=== PATIENT | female | born 1975 | race Caucasian/White ===

== ENCOUNTER → 2019-05-04 14:34 | Outpatient (BNVA) | payer OTHER, SELFPAY | PROVIDERS: PCP Nurse Practitioner; Visit Provider Psychiatry & Neurology Psychiatry | DX: F40.10 Social phobia, unspecified (principal) | CPT/HCPCS: 80061; 83036 ==

== ENCOUNTER 2019-05-26 14:00 | Outpatient (CLI) | payer MEDICAID, SELFPAY ==
[2019-05-16 12:35] VITALS: BP 111/77
--- NOTE | 2019-05-26 14:30 | MM_ITS ---
WS: [id number] SCREENING DIGITAL MAMMOGRAM WITH CAD HISTORY: Screening. COMPARISON: None available. Bilateral CC and MLO views submitted. Computer aided detection analyzed. Breast composition: There are scattered areas of fibroglandular density. Dense slightly lobulated nod ule in the LEFT axillary tail measures 6.8 mm. Central lucent notch. Favor this is probably a lymph n ode. As it is very dense margins are slightly lobulated and not imaged prior additional imaging is re commended. LEFT breast: Spot compression views (CC and MLO). True ML. Ultrasound to follow if abnormality persis ts. Favor benign lymph node but due to some concerning features recommend additional imaging. MM/[id number] IMPRESSION: BI-RADS: 0-Incomplete: Need additional imaging evaluation FOLLOW UP: Need Additional Imaging
== END 2019-05-26 14:01 | disposition home or self-care (01) ==
LOC: RADSHAW 14:03
PROVIDERS: PCP Nurse Practitioner; Visit Provider Internal Medicine
DX: N95.1 Menopausal and female climacteric states (principal); Z12.31 Encounter for screening mammogram for malignant neoplasm of breast
CPT/HCPCS: 77067

== ENCOUNTER 2019-06-13 09:32 | Outpatient (CLI) | payer MEDICAID, SELFPAY ==
[2019-05-16 12:35] VITALS: BP 111/77
--- NOTE | 2019-06-13 09:38 | US_ITS ---
WS: [id number] LEFT DIGITAL MAMMOGRAPHY WITH CAD CLINICAL INFORMATION: ABNORMAL MAMMOGRAM COMPARISON: May 26, 2019 TECHNIQUE: 3 views of the left breast were obtained. FINDINGS: Scattered fibroglandular densities of the left breast. Again seen is the 7 mm oval density upper oute r left breast with suggestion of a fatty hilum which most likely represents incidental lymph node. No comparisons available. Ultrasound is pending for further evaluation. ULTRASOUND BREAST LEFT TECHNIQUE: Ultrasound left breast focused area of concern. CLINICAL INFORMATION: ABNORMAL MAMMOGRAM COMPARISON: None. FINDINGS: Ultrasound left breast o'clock position axillary tail. (Image at the 10-1 o'clock positions. Incident al benign-appearing lymph node is noted measuring 7.8 mm with echogenic fatty hilum. Of note, this is only well visualized with patient positioned in the upright position with left arm raised for future reference. US/US breast LT limited* [id number] IMPRESSION: BI-RADS: 2-Benign FOLLOW UP: 1 Year Follow-up Recommend return to annual screening mammography.
== END 2019-06-13 09:33 | disposition home or self-care (01) ==
LOC: RADSHAW 09:33
PROVIDERS: PCP Internal Medicine; Visit Provider Internal Medicine
DX: R92.8 Other abnormal and inconclusive findings on diagnostic imaging of breast (principal); N63.21 Unspecified lump in the left breast, upper outer quadrant
CPT/HCPCS: 76642; 77065

== ENCOUNTER → 2019-07-20 07:51 | Outpatient (BNVA) | payer MEDICAID, SELFPAY | PROVIDERS: PCP Internal Medicine; Visit Provider Psychiatry & Neurology Psychiatry | DX: F43.10 Post-traumatic stress disorder, unspecified (principal); F39 Unspecified mood [affective] disorder; G47.00 Insomnia, unspecified; F09 Unspecified mental disorder due to known physiological condition; F07.89 Other personality and behavioral disorders due to known physiological condition; F40.01 Agoraphobia with panic disorder; E55.9 Vitamin D deficiency, unspecified; N95.1 Menopausal and female climacteric states; F33.1 Major depressive disorder, recurrent, moderate | CPT/HCPCS: 99205 ==

== ENCOUNTER → 2019-08-14 08:21 | Outpatient (BNVA) | payer MEDICAID, SELFPAY ==
[2019-05-16 12:35] VITALS: BP 111/77
== END ==
PROVIDERS: PCP Internal Medicine; Visit Provider Social Worker
DX: F43.12 Post-traumatic stress disorder, chronic (principal); F25.1 Schizoaffective disorder, depressive type; F41.0 Panic disorder [episodic paroxysmal anxiety]
CPT/HCPCS: 90834

== ENCOUNTER → 2019-08-28 08:31 | Outpatient (BNVA) | payer MEDICAID, SELFPAY ==
[2019-05-16 12:35] VITALS: BP 111/77
== END ==
PROVIDERS: PCP Internal Medicine; Visit Provider Social Worker
DX: F43.12 Post-traumatic stress disorder, chronic (principal); F25.1 Schizoaffective disorder, depressive type; F41.0 Panic disorder [episodic paroxysmal anxiety]
CPT/HCPCS: 90834

== ENCOUNTER → 2019-08-29 15:00 | Outpatient (BNVA) | payer MEDICAID, SELFPAY ==
[2019-05-16 12:35] VITALS: BP 111/77
== END ==
PROVIDERS: Visit Provider Psychiatry & Neurology Psychiatry
DX: F41.1 Generalized anxiety disorder (principal); F40.01 Agoraphobia with panic disorder; F43.12 Post-traumatic stress disorder, chronic
CPT/HCPCS: 99214

== ENCOUNTER → 2019-10-02 07:47 | Outpatient (BNVA) | payer MEDICAID, SELFPAY ==
[2019-05-16 12:35] VITALS: BP 111/77
== END ==
PROVIDERS: PCP Internal Medicine; Visit Provider Nurse Practitioner Psychiatric/Mental Health
DX: F43.10 Post-traumatic stress disorder, unspecified (principal); F25.1 Schizoaffective disorder, depressive type; F39 Unspecified mood [affective] disorder
CPT/HCPCS: 90834; 99213

== ENCOUNTER → 2019-10-23 08:00 | Outpatient (BNVA) | payer MEDICAID, SELFPAY ==
[2019-05-16 12:35] VITALS: BP 111/77
== END ==
PROVIDERS: Visit Provider Social Worker Clinical
DX: F43.12 Post-traumatic stress disorder, chronic (principal)
CPT/HCPCS: 90834

== ENCOUNTER → 2019-11-06 08:35 | Outpatient (BNVA) | payer MEDICAID, SELFPAY ==
[2019-05-16 12:35] VITALS: BP 111/77
== END ==
PROVIDERS: Visit Provider Social Worker Clinical
DX: F43.12 Post-traumatic stress disorder, chronic (principal); F25.1 Schizoaffective disorder, depressive type
CPT/HCPCS: 90834

== ENCOUNTER → 2019-11-20 08:47 | Outpatient (BNVA) | payer MEDICAID, SELFPAY ==
[2019-05-16 12:35] VITALS: BP 111/77
== END ==
PROVIDERS: Visit Provider Social Worker Clinical
DX: F43.12 Post-traumatic stress disorder, chronic (principal); F25.1 Schizoaffective disorder, depressive type
CPT/HCPCS: 90834

== ENCOUNTER → 2019-12-11 08:23 | Outpatient (BNVA) | payer MEDICAID, SELFPAY ==
[2019-05-16 12:35] VITALS: BP 111/77
== END ==
PROVIDERS: Visit Provider Social Worker Clinical
DX: F43.12 Post-traumatic stress disorder, chronic (principal); F25.1 Schizoaffective disorder, depressive type
CPT/HCPCS: 90834

== ENCOUNTER → 2019-12-12 09:32 | Outpatient (BNVA) | payer MEDICAID, SELFPAY ==
[2019-05-16 12:35] VITALS: BP 111/77
== END ==
PROVIDERS: Visit Provider Nurse Practitioner Psychiatric/Mental Health
DX: F25.1 Schizoaffective disorder, depressive type (principal); F43.12 Post-traumatic stress disorder, chronic; F81.9 Developmental disorder of scholastic skills, unspecified
CPT/HCPCS: 99212

== ENCOUNTER → 2019-12-25 09:14 | Outpatient (BNVA) | payer MEDICAID, SELFPAY ==
[2019-05-16 12:35] VITALS: BP 111/77
== END ==
PROVIDERS: Visit Provider Social Worker Clinical
DX: F43.12 Post-traumatic stress disorder, chronic (principal); F25.1 Schizoaffective disorder, depressive type
CPT/HCPCS: 90834

== ENCOUNTER → 2020-01-08 09:01 | Outpatient (BNVA) | payer MEDICAID, SELFPAY ==
[2019-05-16 12:35] VITALS: BP 111/77
== END ==
PROVIDERS: Visit Provider Social Worker Clinical
DX: F43.12 Post-traumatic stress disorder, chronic (principal); F25.1 Schizoaffective disorder, depressive type
CPT/HCPCS: 90834

== ENCOUNTER → 2020-01-22 08:16 | Outpatient (BNVA) | payer MEDICAID, SELFPAY ==
[2019-05-16 12:35] VITALS: BP 111/77
== END ==
PROVIDERS: Visit Provider Social Worker Clinical
DX: F43.12 Post-traumatic stress disorder, chronic (principal); F25.1 Schizoaffective disorder, depressive type
CPT/HCPCS: 90834

== ENCOUNTER → 2020-02-05 08:36 | Outpatient (BNVA) | payer MEDICAID, SELFPAY ==
[2019-05-16 12:35] VITALS: BP 111/77
== END ==
PROVIDERS: Visit Provider Nurse Practitioner Psychiatric/Mental Health
DX: F25.1 Schizoaffective disorder, depressive type (principal); F43.12 Post-traumatic stress disorder, chronic
CPT/HCPCS: 99212

== ENCOUNTER → 2020-02-12 07:51 | Outpatient (BNVA) | payer MEDICAID, SELFPAY ==
[2019-05-16 12:35] VITALS: BP 111/77
== END ==
PROVIDERS: Visit Provider Social Worker Clinical
DX: F43.12 Post-traumatic stress disorder, chronic (principal); F25.1 Schizoaffective disorder, depressive type
CPT/HCPCS: 90834

== ENCOUNTER → 2020-02-26 08:14 | Outpatient (BNVA) | payer MEDICAID, SELFPAY ==
[2019-05-16 12:35] VITALS: BP 111/77
== END ==
PROVIDERS: Visit Provider Social Worker Clinical
DX: F43.12 Post-traumatic stress disorder, chronic (principal); F25.1 Schizoaffective disorder, depressive type
CPT/HCPCS: 90834

== ENCOUNTER → 2020-03-18 07:45 | Outpatient (BNVA) | payer MEDICAID, SELFPAY ==
[2019-05-16 12:35] VITALS: BP 111/77
== END ==
PROVIDERS: Visit Provider Social Worker Clinical
DX: F43.12 Post-traumatic stress disorder, chronic (principal); F25.1 Schizoaffective disorder, depressive type
CPT/HCPCS: 90834

== ENCOUNTER → 2020-04-22 08:47 | Outpatient (BNVA) | payer MEDICAID, SELFPAY ==
[2019-05-16 12:35] VITALS: BP 111/77
== END ==
PROVIDERS: Visit Provider Counselor Professional
DX: F25.1 Schizoaffective disorder, depressive type (principal); F43.12 Post-traumatic stress disorder, chronic
CPT/HCPCS: 90834

== ENCOUNTER → 2020-04-29 09:29 | Outpatient (BNVA) | payer MEDICAID, SELFPAY ==
[2019-05-16 12:35] VITALS: BP 111/77
== END ==
PROVIDERS: Visit Provider Nurse Practitioner Psychiatric/Mental Health
DX: F25.1 Schizoaffective disorder, depressive type (principal); F43.12 Post-traumatic stress disorder, chronic; Z79.899 Other long term (current) drug therapy
CPT/HCPCS: 99213

== ENCOUNTER → 2020-05-06 08:03 | Outpatient (BNVA) | payer MEDICAID, SELFPAY ==
[2019-05-16 12:35] VITALS: BP 111/77
== END ==
PROVIDERS: Visit Provider Counselor Professional
DX: F43.12 Post-traumatic stress disorder, chronic (principal); F41.0 Panic disorder [episodic paroxysmal anxiety]; F25.1 Schizoaffective disorder, depressive type
CPT/HCPCS: 90834

== ENCOUNTER → 2020-06-03 08:03 | Outpatient (BNVA) | payer MEDICAID, SELFPAY ==
[2019-05-16 12:35] VITALS: BP 111/77
== END ==
PROVIDERS: Visit Provider Counselor Professional
DX: F43.12 Post-traumatic stress disorder, chronic (principal)
CPT/HCPCS: 90832

== ENCOUNTER 2020-06-14 08:19 | Outpatient (CLI) | payer MEDICAID, SELFPAY ==
[2019-05-16 12:35] VITALS: BP 111/77
--- NOTE | 2020-06-14 08:23 | MM_ITS ---
WS: [id number] Bilateral screening digital mammogram, 06/14/2020 Clinical Data: SCREENING Comparison: 06/13/2019, 05/26/2019. Findings: The breast parenchymal pattern shows fat replacement. No spiculated masses or clustered calcification s are seen. There are no secondary signs of carcinoma. MM/[id number] Impression: 1. Negative bilateral mammogram unchanged. 2. Recommend annual screening mammograms. BIRADS: 1-Negative FOLLOW UP: 1 Year Follow-up The CAD loom checker was used.
== END 2020-06-14 08:20 | disposition home or self-care (01) ==
LOC: RADSHAW 08:22
PROVIDERS: PCP Internal Medicine; Visit Provider Internal Medicine
DX: Z12.31 Encounter for screening mammogram for malignant neoplasm of breast (principal)
CPT/HCPCS: 77067

== ENCOUNTER → 2020-06-18 08:26 | Outpatient (BNVA) | payer MEDICAID, SELFPAY ==
[2019-05-16 12:35] VITALS: BP 111/77
== END ==
PROVIDERS: Visit Provider Counselor Professional
DX: F43.12 Post-traumatic stress disorder, chronic (principal); F25.1 Schizoaffective disorder, depressive type; F41.0 Panic disorder [episodic paroxysmal anxiety]
CPT/HCPCS: 90834; 90832

== ENCOUNTER → 2020-07-29 08:06 | Outpatient (BNVA) | payer MEDICAID, SELFPAY ==
[2019-05-16 12:35] VITALS: BP 111/77
== END ==
PROVIDERS: Visit Provider Nurse Practitioner Psychiatric/Mental Health
DX: F43.12 Post-traumatic stress disorder, chronic (principal); F41.0 Panic disorder [episodic paroxysmal anxiety]; F25.1 Schizoaffective disorder, depressive type; Z79.899 Other long term (current) drug therapy
CPT/HCPCS: 99214

== ENCOUNTER → 2020-09-19 07:50 | Outpatient (BNVA) | payer MEDICAID, SELFPAY ==
[2019-05-16 12:35] VITALS: BP 111/77
== END ==
PROVIDERS: Visit Provider Counselor Professional
DX: F43.12 Post-traumatic stress disorder, chronic (principal); F41.0 Panic disorder [episodic paroxysmal anxiety]; F25.1 Schizoaffective disorder, depressive type
CPT/HCPCS: 90791; 80061; 83036

== ENCOUNTER → 2020-09-23 08:18 | Outpatient (BNVA) | payer MEDICAID, SELFPAY ==
[2019-05-16 12:35] VITALS: BP 111/77
== END ==
PROVIDERS: Visit Provider Nurse Practitioner Psychiatric/Mental Health
DX: F43.12 Post-traumatic stress disorder, chronic (principal); F41.0 Panic disorder [episodic paroxysmal anxiety]; F25.1 Schizoaffective disorder, depressive type; Z79.899 Other long term (current) drug therapy
CPT/HCPCS: 99213

== ENCOUNTER → 2020-12-09 07:35 | Outpatient (BNVA) | payer MEDICAID, SELFPAY ==
[2019-05-16 12:35] VITALS: BP 111/77
== END ==
PROVIDERS: Visit Provider Nurse Practitioner Psychiatric/Mental Health
DX: F43.12 Post-traumatic stress disorder, chronic (principal); F41.0 Panic disorder [episodic paroxysmal anxiety]; F25.1 Schizoaffective disorder, depressive type; Z79.899 Other long term (current) drug therapy
CPT/HCPCS: 99213

== ENCOUNTER → 2020-12-23 07:34 | Outpatient (BNVA) | payer MEDICAID, SELFPAY ==
[2019-05-16 12:35] VITALS: BP 111/77
== END ==
PROVIDERS: PCP Internal Medicine; Visit Provider Nurse Practitioner Psychiatric/Mental Health
DX: F43.12 Post-traumatic stress disorder, chronic (principal); F41.1 Generalized anxiety disorder; F25.1 Schizoaffective disorder, depressive type; Z79.899 Other long term (current) drug therapy
CPT/HCPCS: 99213

== ENCOUNTER → 2021-03-13 07:45 | Outpatient (BNVA) | payer MEDICAID, SELFPAY ==
[2019-05-16 12:35] VITALS: BP 111/77
== END ==
PROVIDERS: PCP Internal Medicine; Visit Provider Nurse Practitioner Psychiatric/Mental Health
DX: F43.12 Post-traumatic stress disorder, chronic (principal); F41.0 Panic disorder [episodic paroxysmal anxiety]; F25.1 Schizoaffective disorder, depressive type; Z79.899 Other long term (current) drug therapy
CPT/HCPCS: 99214

== ENCOUNTER → 2021-04-15 07:13 | Outpatient (BNVA) | payer MEDICAID, SELFPAY ==
[2019-05-16 12:35] VITALS: BP 111/77
== END ==
PROVIDERS: PCP Internal Medicine; Visit Provider Nurse Practitioner Psychiatric/Mental Health
DX: F43.12 Post-traumatic stress disorder, chronic (principal); F41.0 Panic disorder [episodic paroxysmal anxiety]; F25.1 Schizoaffective disorder, depressive type; Z79.899 Other long term (current) drug therapy; Z03.89 Encounter for observation for other suspected diseases and conditions ruled out
CPT/HCPCS: 80053; 84439; 84443; 85025; 99214

== ENCOUNTER → 2021-06-09 09:45 | Outpatient (BNVA) | payer MEDICAID, SELFPAY ==
[2019-05-16 12:35] VITALS: BP 111/77
== END ==
PROVIDERS: PCP Internal Medicine; Visit Provider Nurse Practitioner Psychiatric/Mental Health
DX: F43.12 Post-traumatic stress disorder, chronic (principal); F41.0 Panic disorder [episodic paroxysmal anxiety]; F25.1 Schizoaffective disorder, depressive type
CPT/HCPCS: 99214

== ENCOUNTER → 2021-07-22 09:29 | Outpatient (BNVA) | payer MEDICAID, SELFPAY ==
[2019-05-16 12:35] VITALS: BP 111/77
== END ==
PROVIDERS: PCP Internal Medicine; Visit Provider Nurse Practitioner Psychiatric/Mental Health
DX: F43.12 Post-traumatic stress disorder, chronic (principal); F41.0 Panic disorder [episodic paroxysmal anxiety]; F25.1 Schizoaffective disorder, depressive type
CPT/HCPCS: 99214

== ENCOUNTER → 2021-09-09 09:27 | Outpatient (BNVA) | payer MEDICAID, SELFPAY ==
[2019-05-16 12:35] VITALS: BP 111/77
== END ==
PROVIDERS: PCP Internal Medicine; Visit Provider Nurse Practitioner Psychiatric/Mental Health
DX: F43.12 Post-traumatic stress disorder, chronic (principal); F41.0 Panic disorder [episodic paroxysmal anxiety]; F25.1 Schizoaffective disorder, depressive type
CPT/HCPCS: 99213

== ENCOUNTER 2021-11-18 20:00 | Outpatient (CLI) | payer MEDICAID, SELFPAY ==
[2019-05-16 12:35] VITALS: BP 111/77
== END 2021-11-18 20:01 | disposition home or self-care (01) ==
LOC: SLEEP 11-19 06:34
PROVIDERS: PCP Internal Medicine; Visit Provider Internal Medicine
DX: G47.33 Obstructive sleep apnea (adult) (pediatric) (principal)
CPT/HCPCS: 95810

== ENCOUNTER → 2021-12-11 08:11 | Outpatient (BNVA) | payer MEDICAID, SELFPAY ==
[2019-05-16 12:35] VITALS: BP 111/77
== END ==
PROVIDERS: PCP Internal Medicine; Visit Provider Nurse Practitioner Psychiatric/Mental Health
DX: Z79.899 Other long term (current) drug therapy (principal)
CPT/HCPCS: 80053; 80061; 83036

== ENCOUNTER → 2022-02-02 08:56 | Outpatient (BNVA) | payer MEDICAID, SELFPAY ==
[2019-05-16 12:35] VITALS: BP 111/77
== END ==
PROVIDERS: PCP Internal Medicine; Visit Provider Family Medicine
DX: E87.1 Hypo-osmolality and hyponatremia (principal); N95.1 Menopausal and female climacteric states; F17.200 Nicotine dependence, unspecified, uncomplicated; R73.03 Prediabetes; F31.9 Bipolar disorder, unspecified; F25.1 Schizoaffective disorder, depressive type; Z68.34 Body mass index [BMI] 34.0-34.9, adult; Z71.6 Tobacco abuse counseling
CPT/HCPCS: 80053; 82040; 82533; 82670; 83001; 84144; 84146; 84270; 84403; 84439; 84443

== ENCOUNTER 2022-02-03 15:16 | Outpatient (CLI) | payer MEDICAID, SELFPAY ==
[2019-05-16 12:35] VITALS: BP 111/77
--- NOTE | 2022-02-03 15:25 | MM_ITS ---
WS: [id number] BILATERAL 3D TOMOSYNTHESIS DIGITAL SCREENING MAMMOGRAPHY WITH CAD CLINICAL INFORMATION: SCREENING HISTORY: Screening mammogram. No current complaints. COMPARISON: June 14, 2020 TECHNIQUE: Bilateral CC and MLO views. FINDINGS: Scattered fibroglandular densities bilaterally. No suspicious focal mass, asymmetry, calcifications, or architectural distortion. No evidence of malignancy. Incidental intramammary lymph node upper oute r LEFT breast. A few tiny punctate calcifications. MM/[id number] IMPRESSION: BI-RADS: 2-Benign FOLLOW UP: 1 Year Follow-up Recommend return to annual screening mammography.
== END 2022-02-03 15:17 | disposition home or self-care (01) ==
LOC: RAD 15:19
PROVIDERS: PCP Family Medicine; Visit Provider Internal Medicine
DX: Z12.31 Encounter for screening mammogram for malignant neoplasm of breast (principal)
CPT/HCPCS: 77063; 77067

== ENCOUNTER → 2022-04-15 09:27 | Outpatient (BNVA) | payer MEDICAID, SELFPAY ==
[2019-05-16 12:35] VITALS: BP 111/77
== END ==
PROVIDERS: PCP Family Medicine; Visit Provider Obstetrics & Gynecology
DX: R68.82 Decreased libido (principal)
CPT/HCPCS: 84403

== ENCOUNTER → 2022-04-29 08:22 | Outpatient (BNVA) | payer MEDICAID, SELFPAY ==
[2019-05-16 12:35] VITALS: BP 111/77
== END ==
PROVIDERS: PCP Family Medicine; Visit Provider Family Medicine
DX: R73.03 Prediabetes (principal); N18.31 Chronic kidney disease, stage 3a; F31.9 Bipolar disorder, unspecified; N95.1 Menopausal and female climacteric states; E07.89 Other specified disorders of thyroid; F17.200 Nicotine dependence, unspecified, uncomplicated; Z71.6 Tobacco abuse counseling
CPT/HCPCS: 80053; 81000; 83036

== ENCOUNTER 2022-05-05 12:43 | Outpatient (CLI) | payer MEDICAID, SELFPAY ==
[2019-05-16 12:35] VITALS: BP 111/77
--- NOTE | 2022-05-05 12:45 | US_ITS ---
WS: [id number] THYROID ULTRASOUND HISTORY: painful thyroid mass COMPARISON: None available. Right lobe: 1.5 cm x 1.4 cm x 4.6 cm (w x ap x l). Volume: 4.8 cm3. Normal size gland. There is a hypoechoic nodule measuring 5 x 3 x 6 mm in the RIGHT isthmus. No echog enic foci. Left lobe: 1.6 cm x 1.3 cm x 4.3 cm (w x ap x l). Volume: 4.5 cm3. Normal size and echotexture. No significant or dominant nodules are present. Isthmus: 0.2 cm. US/US thyroid [id number] IMPRESSION: 1. No suspicious or concerning thyroid nodules. 2. No increased vascularity. 3. RIGHT isthmus nodule, TI-RADS 2, no FNA recommended..
== END 2022-05-05 12:44 | disposition home or self-care (01) ==
LOC: RAD 12:44
PROVIDERS: PCP Family Medicine; Visit Provider Family Medicine
DX: E07.89 Other specified disorders of thyroid (principal)
CPT/HCPCS: 76536

== ENCOUNTER → 2022-05-08 13:50 | Outpatient (BNVA) | payer MEDICAID, SELFPAY ==
[2019-05-16 12:35] VITALS: BP 111/77
== END ==
PROVIDERS: PCP Family Medicine; Visit Provider Emergency Medicine
DX: Z20.822 Contact with and (suspected) exposure to COVID-19 (principal); J02.9 Acute pharyngitis, unspecified; U07.1 COVID-19
CPT/HCPCS: 87426

== ENCOUNTER → 2022-12-31 08:40 | Outpatient (BNVA) | payer MEDICAID, SELFPAY ==
[2019-05-16 12:35] VITALS: BP 111/77
== END ==
PROVIDERS: PCP Family Medicine; Visit Provider Family Medicine
DX: Z23 Encounter for immunization (principal); R73.03 Prediabetes; G47.00 Insomnia, unspecified; G56.21 Lesion of ulnar nerve, right upper limb; N95.1 Menopausal and female climacteric states; M25.561 Pain in right knee
CPT/HCPCS: 73562; 80053; 83036

== ENCOUNTER → 2023-01-12 09:00 | Outpatient (BNVA) | payer MEDICAID, SELFPAY ==
[2019-05-16 12:35] VITALS: BP 111/77
== END ==
PROVIDERS: PCP Family Medicine; Visit Provider Nurse Practitioner Psychiatric/Mental Health
DX: Z79.899 Other long term (current) drug therapy (principal); F25.1 Schizoaffective disorder, depressive type; F43.12 Post-traumatic stress disorder, chronic; F41.0 Panic disorder [episodic paroxysmal anxiety]; Z63.0 Problems in relationship with spouse or partner; N18.31 Chronic kidney disease, stage 3a
CPT/HCPCS: 80061; 83036

== ENCOUNTER 2023-02-11 07:57 | Outpatient (CLI) | payer MEDICAID, SELFPAY ==
[2019-05-16 12:35] VITALS: BP 111/77
--- NOTE | 2023-02-11 08:06 | MM_ITS ---
WS: [id number] BILATERAL SCREENING DIGITAL TOMOSYNTHESIS MAMMOGRAM WITH CAD HISTORY: SCREENING COMPARISON: 02/03/2022, 06/14/2020 Bilateral CC and MLO views with tomosynthesis and synthetic mammography submitted. Computer aided det ection analyzed. Breast composition: There are scattered areas of fibroglandular density. No suspicious masses, microc alcifications or architectural distortion. Stable intramammary lymph node LEFT axillary tail. IMPRESSION: MM/[place] [id number] BI-RADS: 2-Benign FOLLOW UP: 1 Year Follow-up
== END 2023-02-11 07:58 | disposition home or self-care (01) ==
LOC: RAD 07:57
PROVIDERS: PCP Family Medicine; Visit Provider Family Medicine
DX: Z13.1 Encounter for screening for diabetes mellitus (principal)
CPT/HCPCS: 77063; 77067

== ENCOUNTER → 2023-12-06 08:28 | Outpatient (BNVA) | payer BC, SELFPAY ==
[2023-03-25 11:38] VITALS: BP 118/84; BMI 31.0
== END ==
PROVIDERS: PCP Family Medicine; Visit Provider Family Medicine
DX: N18.31 Chronic kidney disease, stage 3a (principal)
CPT/HCPCS: 80053; 80061; 80307; 81000; 83036; 85025

== ENCOUNTER 2024-01-19 10:34 | Day surgery (SDC) | payer BC, MEDICAID, SELFPAY ==
[2023-12-24 09:39] VITALS: BP 102/74; BMI 32.3
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
[2024-01-19 10:55] VITALS: BP 126/96; PULSE 95; RESP 18; TEMP 36.2; O2SAT 95
[2024-01-19 10:56] VITALS: BMI 31.5
[2024-01-19] MEDS: sodium chloride 0.9% 1,000 ML 30 ML IV (10:58)
--- NOTE | 2024-01-19 11:07 | W.PM.OPSUD ---
Surgery/Procedure H&P Update DATE OF PROCEDURE: January 19, 2024 DATE H&P PERFORMED: 01/17/24 H&P UPDATE INFORMATION: I have reviewed H&P completed within last 30 days, I have examined patient prior to procedure and No changes to prior documentation PLANNED PROCEDURE: Operation Date: 01/19/24 11:45 Proposed Procedures p Colonoscopy [id number], G0121, Z12.11(Not Applicable) - Andrez Cooper, DO
[2024-01-19 12:09] VITALS: BP 116/72; PULSE 62; RESP 16; TEMP 36.1; O2SAT 99
[2024-01-19 12:20] VITALS: BP 119/78; PULSE 73; RESP 18; O2SAT 92
[2024-01-19 12:30] VITALS: BP 135/86; PULSE 64; RESP 18; O2SAT 100
--- NOTE | 2024-01-19 12:50 | ANE.PACU2 ---
Inpatient post-anesthesia follow up: Airway intact: Yes Vital signs: Temperature 97.0 F Pulse Rate 64 Respiratory Rate 18 Blood Pressure 135/86 Pulse Oximetry 100 Oxygen Delivery Me thod Room Air Oxygen Flow Rate Fraction of Inspir ed Oxygen Hydration adequate: Yes Nausea and vomiting: No Pain level: 1 Mental status: Baseline
== END 2024-01-19 12:50 | disposition home or self-care (01) ==
PROVIDERS: PCP Family Medicine; Visit Provider Surgery
PROC: 0DJD8ZZ Inspection of Lower Intestinal Tract, Via Natural or Artificial Opening Endoscopic (ICD-10-PCS; CPT 45378; principal; 2024-01-19 11:45)
DX: Z12.11 Encounter for screening for malignant neoplasm of colon (principal); D12.0 Benign neoplasm of cecum; D12.5 Benign neoplasm of sigmoid colon; G47.30 Sleep apnea, unspecified; E11.42 Type 2 diabetes mellitus with diabetic polyneuropathy; Z86.16 Personal history of COVID-19
CPT/HCPCS: 45385; 88305; J2250; J2704; J7030

== ENCOUNTER 2024-02-17 14:09 | Outpatient (CLI) | payer BC, MEDICAID, SELFPAY ==
[2023-12-24 09:39] VITALS: BP 102/74; BMI 32.3
--- NOTE | 2024-02-17 14:15 | MM_ITS ---
WS: [id number] VIEWS: MLO and CC views both breasts. 3D digital tomosynthesis is also included in this exam. Comparison made with prior exam of 05/26/2019, 06/14/2020, 02/03/2022, 02/11/2023,. Findings: There are scattered areas of fibroglandular density. No mass, tumor calcification or architectural distortion in either breast. MM/MM scr BI tomosynthesis [id number] Impression: BI-RADS: 2 - Benign. FOLLOW-UP: 1 Year Follow-up This mammogram was also analyzed by the Computer Aided Detection System R2 Imag e Housekeeping Cleaner.
== END 2024-02-17 14:10 | disposition home or self-care (01) ==
PROVIDERS: PCP Family Medicine; Visit Provider Family Medicine
DX: Z12.31 Encounter for screening mammogram for malignant neoplasm of breast (principal); R92.323 Mammographic fibroglandular density, bilateral breasts
CPT/HCPCS: 77063; 77067

== ENCOUNTER → 2024-05-01 10:09 | Outpatient (BNVA) | payer BC, SELFPAY ==
[2023-12-24 09:39] VITALS: BP 102/74; BMI 32.3
== END ==
PROVIDERS: PCP Family Medicine; Visit Provider Family Medicine
DX: R42 Dizziness and giddiness (principal); Z86.39 Personal history of other endocrine, nutritional and metabolic disease
CPT/HCPCS: 80053; 84439; 84443; 86376

== ENCOUNTER 2024-05-08 15:46 | Outpatient (CLI) | payer BC, MEDICAID, SELFPAY ==
[2023-12-24 09:39] VITALS: BP 102/74; BMI 32.3
--- NOTE | 2024-05-08 16:15 | USCV_ITS ---
Elizabeth Galicia Age: 48 Gender: F : 1975 Exam Date: 05/08/2024 15:59 Ordering Phys: Kael Landeros MD Technologist: CT Exam Location: [facility] – [place]_ Indication: dizziness Risk Factors: Previous Vascular Surgery: Right Brachial BP: / Left Brachial BP: / Right Left Velocity (cm/s) Spectral Plaque Velocity (cm/s) Spectral Plaque Syst/Diast Broadening Syst/Diast Broadening 83.50/ 21.30 Prox CCA 90.20 / 24.30 86.90/ 24.60 Mid CCA 80.00 / 24.30 88.40/ 27.60 Distal CCA 76.40 / 26.10 58.70/ 18.70 Prox ICA 60.70 / 30.80 58.70/ 27.60 Mid ICA 50.10 / 23.10 70.10/ 31.80 Distal ICA 57.20 / 21.90 80.90 ECA 56.00 0.80 ICA/CCA 0.80 Antegrade Vertebral Antegrade 39.20/ 17.10 cm/s 42.30/ 18.00 cm/s Tri Subclavian Tri 76.00 70.80 CONCLUSIONS Right ICA stenosis <50%. Left ICA stenosis <50%. Normal antegrade Doppler flow noted in the right vertebral artery. Normal antegrade Doppler flow noted in the left vertebral artery. David Merlos MD (Electronically Signed) Final Date: 08 May 2024 17:16 S
== END 2024-05-08 15:47 | disposition home or self-care (01) ==
PROVIDERS: PCP Family Medicine; Visit Provider Family Medicine
DX: R42 Dizziness and giddiness (principal); I65.23 Occlusion and stenosis of bilateral carotid arteries
CPT/HCPCS: 93880

== ENCOUNTER 2024-06-30 11:14 | Inpatient (IN) | payer BC, MEDICAID, SELFPAY ==
[2023-12-24 09:39] VITALS: BP 102/74; BMI 32.3
[2024-06-30 11:16] VITALS: BP 128/81; PULSE 96; RESP 18; TEMP 36.7; O2SAT 95; BMI 29.0
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
[2024-06-30 11:48] LABS: Basophils # 0.1 10^3/uL (0.0-0.1); Basophils % 0.5 %; Eosinophils # 0.1 10^3/uL (0.0-0.8); Eosinophils % 0.9 %; Lymphocytes # 1.5 10^3/uL (0.8-4.8); Lymphocytes % 15.3 %; Mean Corpuscular Volume 94.2 fl (85-98); Mean Platelet Volume 9.1 fL (7.4-10.4); Monocytes # 0.8 10^3/uL (0.2-0.9); Monocytes % 8.5 %; Neutrophils # 7.18 10^3/uL (1.8-7.7); Neutrophils % 74.5 %; Nucleated Red Blood Cells % 0 %; Platelet Count 273 10^3/cmm (157-399); Red Blood Count 4.67 10^6/uL (3.85-5.65); Red Cell Distribution Width 12.6 % (12.1-15.1); White Blood Count 9.65 10^3/uL (3.29-11.43)
[2024-06-30 11:55] LABS: Amphetamines Screen Urine Negative (Negative); Barbiturates Screen Urine Negative (Negative); Benzodiazepines Screen Urine Negative (Negative); Cocaine Screen Urine Negative (Negative); Opiate Screen Urine Negative (Negative); PCP Screen Urine Negative (Negative); THC Screen Urine Positive (Negative)
[2024-06-30 12:04] LABS: Alanine Aminotransferase 16 U/L (0-33); Albumin Level 4.5 g/dL (3.5-5.2); Alkaline Phosphatase 111 U/L (35-105); Anion Gap 19.5 (5-19); Aspartate Amino Transferase 18 U/L (0-32); Blood Urea Nitrogen 12 mg/dL (6-20); Calcium 9.4 mg/dL (8.5-10.5); Carbon Dioxide 22 mmol/L (22-29); Chloride 97 mmol/L (98-107); Creatinine Clr Calc Pharmacy 66.8445; Globulin 3.8 g/dL (1.3-4.6); Glomerular Filtration Rate 66.3 mL/min (90-130); Glucose 123 mg/dL (65-115); Osmolality Calculated 281 mOsm/kg (285-295); Potassium 3.5 mmol/L (3.5-5.1); Sodium 135 mmol/L (136-145); Total Bilirubin 0.3 mg/dL (0.15-1.2); Total Protein 8.3 g/dL (6.6-8.7)
[2024-06-30 12:05] LABS: Acetaminophen < 5.0 ug/mL (10-30); Alcohol Level < 10 mg/dL (0-10); Salicylate < 0.3 mg/dL (3-10)
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
[2024-06-30 12:36] VITALS: BP 141/89; PULSE 81; O2SAT 97
[2024-06-30] MEDS: hyDROXYzine 25 mg Capsule 50 MG PO ×2 (12:36→21:25)
[2024-06-30 16:31] VITALS: BP 122/81; PULSE 108; TEMP 36.7; O2SAT 96
[2024-06-30 17:43] VITALS: BP 120/85; PULSE 84; O2SAT 96
[2024-06-30] MEDS: nicotine 21 mg Patch 1 PATCH TRANSDERMA (17:59)
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
[2024-06-30] MEDS: trazodone 50 mg Tablet PO (21:25)
[2024-06-30 21:34] VITALS: BP 132/86; PULSE 99; RESP 18; TEMP 36.6; O2SAT 96
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
[2024-07-01 06:00] VITALS: BP 113/75; PULSE 104; RESP 16; O2SAT 94
[2024-07-01] MEDS: ziprasidone hcl 20 mg Capsule PO (08:08)
[2024-07-01] MEDS: duloxetine 60 mg Capsule 120 MG PO (08:09)
[2024-07-01] MEDS: hyDROXYzine 25 mg Capsule 50 MG PO (08:09)
--- NOTE | 2024-07-01 10:42 | PC.NURSE ---
Pt states that she has not slept well. She denies SI/HI. She reports anxiety of 4/10 and depression 4/10, but links this to being here and having recently left her . She is very upset being here, but did agree to taking a PRN for anxiety. She reports back pain of 3/10 with a hx of back pain. She declined intervention for this.
[2024-07-01 14:00] VITALS: BP 116/75; PULSE 82; RESP 16; TEMP 37.3; O2SAT 95
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
[2024-07-01] MEDS: acetaminophen 325 mg Tablet 650 MG PO (19:43)
[2024-07-01] MEDS: ziprasidone hcl 40 mg Capsule 80 MG PO (20:33)
[2024-07-01 21:24] VITALS: BP 120/79; PULSE 82; RESP 18; TEMP 37.1; O2SAT 98
[2024-07-01] MEDS: ESZOPICLONE 3 MG 3 EACH PO (21:39)
[2024-07-01] MEDS: NON-FORMULARY MEDICATION (Linaclotide [Linzess] 145 mcg capsule) 145 EACH PO (21:40)
[2024-07-02 06:00] VITALS: BP 127/87; PULSE 96; RESP 18; TEMP 36.6; O2SAT 97; BMI 28.5
[2024-07-02] MEDS: duloxetine 60 mg Capsule 120 MG PO (09:00)
[2024-07-02] MEDS: ziprasidone hcl 20 mg Capsule PO (09:00)
[2024-07-02] MEDS: acetaminophen 325 mg Tablet 650 MG PO (10:20)
[2024-07-02 14:00] VITALS: BP 116/80; PULSE 97; RESP 16; TEMP 36.8; O2SAT 96
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
[2024-07-02] MEDS: blistex lip oint 7 gm Tube 1 APPLIC TOPICAL (17:50)
[2024-07-02 17:55] VITALS: BP 116/80; PULSE 97; RESP 16; TEMP 36.8; O2SAT 96
--- NOTE | 2024-07-03 09:09 | PC.OT ---
OT EVALUATION ORDERS RECEIVED; PATIENT D/C BEFORE EVALUATION COULD BE COMPLETED
== END 2024-07-02 18:10 | disposition home or self-care (01) | DRG 885 ==
LOC: ER 12:50 → NP 17:56
PROVIDERS: Admitting Provider Psychiatry & Neurology Psychiatry; Emergency Provider Physician Assistant; PCP Family Medicine; Visit Provider Psychiatry & Neurology Psychiatry
DX: F25.1 Schizoaffective disorder, depressive type (principal); F43.12 Post-traumatic stress disorder, chronic; F40.01 Agoraphobia with panic disorder; Z63.0 Problems in relationship with spouse or partner; G62.9 Polyneuropathy, unspecified; F12.90 Cannabis use, unspecified, uncomplicated; F15.11 Other stimulant abuse, in remission; E66.9 Obesity, unspecified; Z68.28 Body mass index [BMI] 28.0-28.9, adult; E55.9 Vitamin D deficiency, unspecified; Z98.1 Arthrodesis status; F17.210 Nicotine dependence, cigarettes, uncomplicated
CPT/HCPCS: 36415; 80053; 80306; 80307; 85025; 99285; J9999

== ENCOUNTER → 2024-07-27 11:04 | Outpatient (BNVA) | payer BC, SELFPAY ==
[2023-12-24 09:39] VITALS: BP 102/74; BMI 32.3
== END ==
PROVIDERS: PCP Family Medicine; Visit Provider Family Medicine
DX: R73.09 Other abnormal glucose (principal)
CPT/HCPCS: 80048; 83036

== ENCOUNTER 2024-12-25 09:53 | Outpatient (CLI) | payer SELFPAY ==
[2023-12-24 09:39] VITALS: BP 102/74; BMI 32.3
--- NOTE | 2024-12-25 10:01 | XR_ITS ---
WS: [id number] XR lumbar spine 2-3V* [id number] REASON FOR EXAM: PAIN AND ROM DIFFICULTY FINDINGS: Posterior decompression with pedicle screws and interconnecting rods L5-S1. Interbody fusion device at L5-S1. Lateral bony fusion masses L5-S1. Compared to previous examination of 12/13/2014, the disc space at L5-S1 has become narrower and appears fused. The posterior aspect of the L4-L5 and L3-L4 disc spaces is somewhat narrower than on the previous examination. Multiple large gallbladder calculi are identified, not present on the previous examination. XR/XR lumbar spine 2-3V* [id number] IMPRESSION: Posterior lumbar fusion with interval change as above. Interval development of cholelithiasis.
== END 2024-12-25 09:54 | disposition home or self-care (01) ==
PROVIDERS: PCP Family Medicine; Visit Provider Emergency Medicine
DX: M48.07 Spinal stenosis, lumbosacral region (principal); K80.20 Calculus of gallbladder without cholecystitis without obstruction; Z98.1 Arthrodesis status
CPT/HCPCS: 72100

== ENCOUNTER → 2025-01-29 13:29 | Outpatient (BNVA) | payer OTHER, SELFPAY ==
[2023-12-24 09:39] VITALS: BP 102/74; BMI 32.3
== END ==
PROVIDERS: PCP Family Medicine; Visit Provider Nurse Practitioner Psychiatric/Mental Health
DX: Z79.899 Other long term (current) drug therapy (principal)
CPT/HCPCS: 80053; 80061; 83036

== ENCOUNTER 2025-02-19 09:04 | Outpatient (CLI) | payer BC, SELFPAY ==
[2025-01-30 11:21] VITALS: BP 115/69; BMI 26.8
--- NOTE | 2025-02-19 09:10 | MM_ITS ---
WS: [id number] BILATERAL 3D TOMOSYNTHESIS DIGITAL SCREENING MAMMOGRAPHY WITH CAD CLINICAL INFORMATION: SCREENING HISTORY: Screening mammogram. No current complaints. COMPARISON: 2023 TECHNIQUE: Bilateral CC and MLO views. FINDINGS: Scattered fibroglandular densities bilaterally. No suspicious focal mass, asymmetry, calcifications, or architectural distortion. No evidence of malignancy. MM/MM scr BI tomosynthesis [id number] IMPRESSION: DENSITY: There are scattered areas of fibroglandular density. BI-RADS: 1 - Negative. FOLLOW UP: 1 Year Follow-up Recommend return to annual screening mammography.
== END 2025-02-19 09:05 | disposition home or self-care (01) ==
LOC: RAD 09:05
PROVIDERS: PCP Family Medicine; Visit Provider Family Medicine
DX: Z12.31 Encounter for screening mammogram for malignant neoplasm of breast (principal); R92.323 Mammographic fibroglandular density, bilateral breasts
CPT/HCPCS: 77063; 77067